=== PATIENT | male | born 1975 | race Caucasian/White ===

== ENCOUNTER → 2023-08-05 08:05 | Outpatient (REF) | payer BC, SELFPAY | LOC: RCS 08:05 | PROVIDERS: ATTENDING PHYSICIAN Internal Medicine Interventional Cardiology; FAMILY PHYSICIAN Family Medicine | DX: I10 Essential (primary) hypertension (principal); R07.89 Other chest pain; Z86.79 Personal history of other diseases of the circulatory system | CPT/HCPCS: 93306 ==